=== PATIENT | female | born 1965 | race Caucasian/White ===

== ENCOUNTER 2020-07-29 11:59 | Outpatient (CLI) | payer BC, SELFPAY ==
--- NOTE | ~2020-07-29 | MM_ITS ---
EXAMINATION: MM screening kat BI w marcos HISTORY: Screening TECHNIQUE: Craniocaudal and mediolateral oblique 3-D tomosynthesis images were obtained and synthetic 2-D images were generated. CAD analysis was submitted and interpreted. COMPARISON: Comparison to multiple prior studies sequentially, with oldest reviewed study dated 09/26. BREAST PARENCHYMAL COMPOSITION: There are scattered areas of fibroglandular density. FINDINGS: There is no evidence of suspicious mass, calcification, or architectural distortion to sugg est malignancy in either breast. There has been no suspicious interval change. IMPRESSION: 1. No mammographic evidence of malignancy. 2. Recommend routine screening mammography in one year. BI-RADS Category 1: Negative Reviewed, dictated and finalized at location A.
== END 2020-07-29 12:00 | disposition home or self-care (01) ==
PROVIDERS: PCP Internal Medicine; Visit Provider Obstetrics & Gynecology
DX: Z12.31 Encounter for screening mammogram for malignant neoplasm of breast (principal)
CPT/HCPCS: 77063; 77067

== ENCOUNTER 2020-08-19 13:55 | Outpatient (CLI) | payer BC, SELFPAY ==
[2020-08-19 14:55] LABS: Basophils Percent Auto 0.5 % (0.2-1.2); Eosinophils Absolute Auto 0.2 K/mm3 (0-0.3); Eosinophils Percent Auto 2.1 % (0-4.4); Hematocrit 43.3 % (37.0-47.0); Hemoglobin 14.8 g/dL (12.0-15.0); Immature Granulocyte Absolute 0.03 K/mm3 (0.00-0.031); Immature Granulocyte Percent A 0.4 % (0-0.5); Lymphocytes Percent Auto 27.5 % (18.3-44.2); Mean Corpuscular HGB Conc 34.2 g/dl (32-36); Mean Corpuscular Hemoglobin 33.7 pg (26-34); Mean Corpuscular Volume 98.6 fl (80-100); Mean Platelet Volume 10.9 fl (7.4-10.4); Monocytes Absolute Auto 0.6 K/mm3 (0.1-0.6); Monocytes Percent Auto 7.2 % (2.6-8.5); Neutrophils Percent Auto 62.3 % (45.5-73.1); Platelet Count Result 235 k/mm3 (150-375); Red Blood Count 4.39 M/mm3 (4.2-5.4); Red Cell Distribution Width 12.1 % (11.5-14.5)
[2020-08-19 16:08] LABS: Vitamin D 25 Hydroxy 40.8 ng/mL
== END 2020-08-19 13:56 | disposition home or self-care (01) ==
LOC: ANHLAB 13:57
PROVIDERS: PCP Internal Medicine; Visit Provider Obstetrics & Gynecology
DX: Z00.00 Encounter for general adult medical examination without abnormal findings (principal)
CPT/HCPCS: 36415; 82306; 85025

== ENCOUNTER 2021-05-01 12:30 | Outpatient (CLI) | payer OTHER, SELFPAY ==
--- NOTE | ~2021-05-01 | XR_ITS ---
EXAMINATION: XR shoulder RT min 2V DATE: 05/01/2021 13:02 INDICATION: Right shoulder pain. TECHNIQUE: 4 views of right shoulder were obtained. COMPARISON: None. FINDINGS: Bone alignment is normal. No fracture. Glenohumeral joint is normal. There is mild acromioc lavicular joint osteoarthritis. There is mild scarring at right lung apex. IMPRESSION: 1. Mild acromioclavicular joint osteoarthritis. Reviewed, dictated and finalized at location A.
--- NOTE | ~2021-05-01 | XR_ITS ---
EXAMINATION: XR chest 2V 05/01/2021 13:02 INDICATION: Chest pain PROCEDURE: PA and lateral views of the chest COMPARISON: 11/01/2017 FINDINGS: The lungs are clear. The cardiomediastinal silhouette is within normal limits. There are no pleural effusions. There is no pneumothorax suspected. IMPRESSION: 1: NO ACUTE CARDIOPULMONARY DISEASE. Reviewed, dictated and finalized at location B.
[2021-05-01 12:54] LABS: Basophils Percent Auto 0.7 % (0.2-1.2); Eosinophils Absolute Auto 0.1 K/mm3 (0-0.3); Eosinophils Percent Auto 2.2 % (0-4.4); Hematocrit 46.3 % (37.0-47.0); Hemoglobin 15.2 g/dL (12.0-15.0); Immature Granulocyte Absolute 0.03 K/mm3 (0.00-0.031); Immature Granulocyte Percent A 0.5 % (0-0.5); Lymphocytes Absolute Auto 1.85 K/mm3 (0.9-3.2); Lymphocytes Percent Auto 33.6 % (18.3-44.2); Mean Corpuscular HGB Conc 32.8 g/dl (32-36); Mean Corpuscular Hemoglobin 32.8 pg (26-34); Mean Corpuscular Volume 99.8 fl (80-100); Mean Platelet Volume 10.3 fl (7.4-10.4); Monocytes Absolute Auto 0.5 K/mm3 (0.1-0.6); Monocytes Percent Auto 8.4 % (2.6-8.5); Neutrophils Percent Auto 54.6 % (45.5-73.1); Platelet Count Result 219 k/mm3 (150-375); Red Blood Count 4.64 M/mm3 (4.2-5.4); Red Cell Distribution Width 12.2 % (11.5-14.5); White Blood Count 5.5 K/mm3 (4.5-10.0)
[2021-05-01 13:14] LABS: Alanine Aminotransferase 22 U/L (4-35); Albumin Level 4.7 g/dL (3.5-5.1); Alkaline Phosphatase 59 U/L (38-126); Anion Gap 10 mmol/L (8-16); Aspartate Amino Transferase 29 U/L (14-36); Bilirubin,Total 0.6 mg/dL (0.2-1.3); Blood Urea Nitrogen 16 mg/dL (7-17); Calcium 9.7 mg/dL (8.4-10.2); Carbon Dioxide 25 mmol/L (22-30); Chloride 105 mmol/L (98-107); Cholesterol 195 mg/dL (0-200); Estimated Glomerular Filt Rate > 60; Glucose 79 mg/dL (65-105); HDL Direct 77 mg/dL; Potassium 4.6 mmol/L (3.4-5.0); Sodium 140 mmol/L (137-145); Triglycerides 66 mg/dL (<150)
[2021-05-01 13:25] LABS: LDL Cholesterol Direct 84 mg/dL
[2021-05-01 14:07] LABS: Thyroid Stimulating Hormone 0.431 uIU/mL (0.465-4.680)
== END 2021-05-01 12:31 | disposition home or self-care (01) ==
PROVIDERS: PCP Internal Medicine; Referring Provider Nurse Practitioner; Visit Provider Clinical Nurse Specialist
DX: R07.81 Pleurodynia (principal); I10 Essential (primary) hypertension; M19.011 Primary osteoarthritis, right shoulder
CPT/HCPCS: 36415; 71046; 73030; 80053; 80061; 84443; 85025

== ENCOUNTER 2022-01-30 11:08 | Outpatient (CLI) | payer OTHER, SELFPAY ==
--- NOTE | ~2022-01-30 | CT_ITS ---
EXAMINATION: CT abdomen pelvis w con EXAM DATE: 01/30/2022 11:48 INDICATION: R10.9 - Unspecified abdominal pain . TECHNIQUE: Spiral CT of the abdomen and pelvis was performed following intravenous injection of 100 m L Omnipaque 350. Axial, coronal and sagittal images of the abdomen and pelvis were reviewed. The do se-length product (DLP) for this examination was 264.66 mGy-cm. The exposure was tailored according to patient size (auto mA exposure control), and iterative reconstruction (ASIR) was used as additiona l dose reduction technique. Comparison is made to prior examination from 07/26/2019. FINDINGS: There is a right liver dome hemangioma measuring about 1.1 cm. Pancreas, spleen, adrenal gl ands are otherwise unremarkable. Gallbladder is unremarkable. No biliary obstruction. Portal and s plenic veins are patent. Kidneys enhance symmetrically. There is no hydronephrosis. The uterus is unremarkable. The bladder is unremarkable. There is no retroperitoneal or pelvic lymphadenopathy. Interval appendectomy. There is moderate sigmoid predominant colonic diverticulosis. There is no adj acent inflammatory change to suggest diverticulitis. The stomach and small bowel are unremarkable. T here is expected amount of colonic stool. No free intraperitoneal gas. The heart is normal in siz e. There are no pericardial or pleural effusions. The lung bases are unremarkable. There are no os teoblastic or osteolytic lesions identified. IMPRESSION: 1. No acute intra-abdominal findings. 2. Moderate colonic diverticulosis. 3. Small liver hemangioma. Reviewed, dictated and finalized at location A. NSED ACUPUNCTURIST
[2022-01-30 11:41] LABS: Basophils Percent Auto 0.7 % (0.2-1.2); Eosinophils Absolute Auto 0.1 K/mm3 (0-0.3); Eosinophils Percent Auto 2.1 % (0-4.4); Hematocrit 46.6 % (37.0-47.0); Hemoglobin 15.5 g/dL (12.0-15.0); Immature Granulocyte Absolute 0.02 K/mm3 (0.00-0.031); Immature Granulocyte Percent A 0.3 % (0-0.5); Lymphocytes Absolute Auto 1.91 K/mm3 (0.9-3.2); Lymphocytes Percent Auto 33.2 % (18.3-44.2); Mean Corpuscular HGB Conc 33.3 g/dl (32-36); Mean Corpuscular Hemoglobin 33.8 pg (26-34); Mean Corpuscular Volume 101.7 fl (80-100); Mean Platelet Volume 10.4 fl (7.4-10.4); Monocytes Absolute Auto 0.5 K/mm3 (0.1-0.6); Monocytes Percent Auto 8.3 % (2.6-8.5); Neutrophils Absolute Auto 3.2 K/mm3 (1.3-6.7); Neutrophils Percent Auto 55.4 % (45.5-73.1); Platelet Count Result 244 k/mm3 (150-375); Red Blood Count 4.58 M/mm3 (4.2-5.4); Red Cell Distribution Width 12.4 % (11.5-14.5); White Blood Count 5.8 K/mm3 (4.5-10.0)
[2022-01-30 11:41] LABS: Estimated Glomerular Filt Rate > 60
[2022-01-30 11:53] LABS: Alanine Aminotransferase 22 U/L (4-35); Albumin Level 4.6 g/dL (3.5-5.1); Alkaline Phosphatase 63 U/L (38-126); Amylase 85 U/L (30-110); Anion Gap 8 mmol/L (8-16); Aspartate Amino Transferase 28 U/L (14-36); Bilirubin,Total 0.5 mg/dL (0.2-1.3); Blood Urea Nitrogen 14 mg/dL (7-17); Calcium 9.3 mg/dL (8.4-10.2); Carbon Dioxide 28 mmol/L (22-30); Chloride 104 mmol/L (98-107); Estimated Glomerular Filt Rate > 60; Glucose 99 mg/dL (65-110); Lipase 96 U/L (23-300); Potassium 4.7 mmol/L (3.4-5.0); Sodium 140 mmol/L (137-145)
== END 2022-01-30 11:09 | disposition home or self-care (01) ==
PROVIDERS: PCP Internal Medicine; Visit Provider Internal Medicine
DX: R10.9 Unspecified abdominal pain (principal); K57.30 Diverticulosis of large intestine without perforation or abscess without bleeding; D18.03 Hemangioma of intra-abdominal structures
CPT/HCPCS: 36415; 74177; 80053; 82150; 83690; 85025; Q9967

== ENCOUNTER 2022-02-05 09:53 | Outpatient (CLI) | payer OTHER, SELFPAY ==
--- NOTE | ~2022-02-05 | NM_ITS ---
EXAMINATION: NM hepatobiliary wo pharm DATE: 02/05/2022 12:41 INDICATION: Unspecified abdominal pain. COMPARISON: CT abdomen and pelvis 01/30/2022 TECHNIQUE: 5 mCi Tc-99m mebrofenin (Choletec) was administered intravenously. Scintigraphic images o f the abdomen were obtained for one hour. Then, the patient drank 8 oz Ensure, and imaging was contin ued for 60 minutes. FINDINGS: There is normal clearance of radiotracer from the blood pool. There is homogeneous tracer u ptake by the liver. Activity progresses to the bowel and gallbladder. Gallbladder ejection fraction (GBEF) was 65%. Note that with this technique, normal GBEF >= 33%. IMPRESSION: 1. Normal hepatobiliary scintigraphy. Reviewed, dictated and finalized at location A.
== END 2022-02-05 09:54 | disposition home or self-care (01) ==
LOC: ANHIMG 09:54
PROVIDERS: PCP Internal Medicine; Visit Provider Internal Medicine
DX: R10.9 Unspecified abdominal pain (principal)
CPT/HCPCS: 78226; A9537

== ENCOUNTER 2022-02-15 13:14 | Outpatient (CLI) | payer OTHER, SELFPAY ==
[2022-02-15 14:10] LABS: Add Urine Microscopic? YES; Appearance Urine Clear (Clear); Bacteria Urine Trace /hpf; Bilirubin Urine Negative (Negative); Blood Urine Negative (Negative); Color Urine Yellow (Yellow); Glucose Urine UA Negative (Negative); Ketones Urine Negative (Negative); Leukocyte Esterase Ur Negative LEU/UL (Negative); Nitrate Urine Negative (Negative); Protein Urine Negative (Negative); RBC Urine 0-2 /hpf (0-2); Specific Grav Ur 1.011 (1.001-1.035); Urobilinogen Urine Negative mg/dL (<2.0); WBC Urine 0-3 /hpf
== END 2022-02-15 13:15 | disposition home or self-care (01) ==
LOC: ANHLAB 13:16
PROVIDERS: PCP Internal Medicine; Visit Provider Obstetrics & Gynecology
DX: R39.9 Unspecified symptoms and signs involving the genitourinary system (principal)
CPT/HCPCS: 81001

== ENCOUNTER 2022-04-12 11:15 | Outpatient (CLI) | payer OTHER, SELFPAY ==
--- NOTE | ~2022-04-12 | XR_ITS ---
EXAMINATION: XR tibia fibula LT 2V DATE: 04/12/2022 11:47 INDICATION: Left knee pain. TECHNIQUE: 2 views of left tibia and fibula on 3 radiographs were obtained. COMPARISON: None. FINDINGS: Bone alignment is normal. No fracture. There is mild left knee osteoarthritis. IMPRESSION: 1. Mild left knee osteoarthritis. Reviewed, dictated and finalized at location A.
--- NOTE | ~2022-04-12 | XR_ITS ---
XR knee LT min 4V 04/12/2022 11:47 INDICATION: Left knee pain PROCEDURE: 4 views left knee COMPARISON: 04/12/2022 FINDINGS: Fracture, dislocation or subluxation is not identified. No significant joint effusion. The soft tissues appear within normal limits. No foreign bodies are identified. IMPRESSION: 1: NO ACUTE BONE OR JOINT ABNORMALITY IDENTIFIED. Reviewed, dictated and finalized at location B.
== END 2022-04-12 11:16 | disposition home or self-care (01) ==
LOC: ANHIMG 11:17
PROVIDERS: PCP Internal Medicine; Visit Provider Nurse Practitioner
DX: M17.12 Unilateral primary osteoarthritis, left knee (principal)
CPT/HCPCS: 73564; 73590

== ENCOUNTER → 2022-04-26 08:49 | Outpatient (CLI) | payer OTHER, SELFPAY ==
--- NOTE | ~2022-04-26 | MR_ITS ---
EXAMINATION: MR knee LT wo con DATE: 04/26/2022 09:29 INDICATION: Right knee pain TECHNIQUE: Magnetic resonance imaging (MRI) of the right knee was performed without intravenous contr ast. Sequences included coronal PD-weighted FSE, coronal PD-weighted FS FSE, sagittal T2-weighted FS E, sagittal PD-weighted FS FSE and axial PD weighted fat saturated FSE. COMPARISON: None. FINDINGS: Medial compartment: Small longitudinal partial-thickness vertical tear extending to contact the inferior articular surfac e in the peripheral third/red zone of the posterior body of the medial meniscus. Partial-thickness ca rtilage loss with mild chondral surface regularity along the anterior weightbearing medial femoral co ndyle and medial tibial plateau. Lateral compartment: Lateral meniscus is normal. Mild partial-thickness cartilage loss with smooth chondral surface along the central to posterior weightbearing lateral femoral condyle. Patellofemoral compartment: Full-thickness chondral fissure with underlying subarticular edema extending obliquely from the infer omedial aspect of the lateral facet near the apical ridge across the apical ridge and into the centra l aspect of the medial patellar facet. Deep chondral ulceration at the superolateral aspect of the me dial patellar facet. Region of cortical irregularity and underlying region of deep chondral fissuring at the inferior aspect of the medial trochlea. Ligaments and tendons: Anterior and posterior cruciate ligaments are normal. Mild thickening of the proximal medial collater al ligament without surrounding edema consistent with mild scarring related to chronic sprain. The fi bular collateral ligament is normal. The extensor mechanism is normal. There is fluid in the soft tis sues situated between the normal-appearing iliotibial band and the lateral margin of the lateral femo ral condyle. The visualized medial and lateral hamstring tendons are normal. Fluid: Small left knee joint effusion. No loose osteochondral bodies identified. Small Farias's cyst. Osseous/other: Normal marrow signal aside from the likely degenerative patellar subarticular edema. No fracture or p athologic marrow replacing process. IMPRESSION: 1. Small partial-thickness vertical tear at the peripheral third of the posterior body of the medial meniscus. 2. Mild tricompartmental osteoarthritis with high-grade chondromalacia in the patellofemoral compartm ent. 3. Prominent soft tissue edema between the normal-appearing iliotibial band and the lateral margin of the lateral femoral condyle. This could be seen with iliotibial band friction syndrome with differen tial including sequelae of trauma either a direct soft tissue contusion or low-grade strain of the il iotibial band or lateral patellofemoral retinaculum. 4. Small left knee joint effusion and small Farias's cyst. Reviewed, dictated and finalized at location B. IMPRESSION: 1. Small partial-thickness vertical tear at the peripheral third of the posteri or body of the medial meniscus. 2. Mild tricompartmental osteoarthritis with high-grade chondromalacia in the p atellofemoral compartment. 3. Prominent soft tissue edema between the normal-appearing iliotibial band and the lateral margin of the lateral femoral condyle. This could be seen with pedrito otibial band friction syndrome with differential including sequelae of trauma e ither a direct soft tissue contusion or low-grade strain of the iliotibial band or lateral patellofemoral retinaculum. 4. Small left knee joint effusion and small Farias's cyst.
== END ==
PROVIDERS: PCP Internal Medicine; Visit Provider Nurse Practitioner
DX: M17.12 Unilateral primary osteoarthritis, left knee (principal); S83.242A Other tear of medial meniscus, current injury, left knee, initial encounter; M79.89 Other specified soft tissue disorders; M71.22 Synovial cyst of popliteal space [Baker], left knee
CPT/HCPCS: 73721

== ENCOUNTER 2022-06-14 14:54 | Outpatient (CLI) | payer OTHER, SELFPAY ==
[2022-06-14 15:52] LABS: Thyroid Stimulating Hormone 0.675 uIU/mL (0.465-4.680)
== END 2022-06-14 14:55 | disposition home or self-care (01) ==
LOC: ANHLAB 14:56
PROVIDERS: PCP Internal Medicine; Visit Provider Nurse Practitioner
DX: R03.0 Elevated blood-pressure reading, without diagnosis of hypertension (principal)
CPT/HCPCS: 36415; 84443

== ENCOUNTER 2022-06-28 09:55 | Emergency (ER) | payer OTHER, SELFPAY ==
--- NOTE | ~2022-06-28 | CT_ITS ---
EXAMINATION: CT brain wo con DATE: 06/28/2022 12:20 INDICATION: Dizziness. Hypertension. TECHNIQUE: Computed tomography (CT) of the head was performed without intravenous contrast. The mA wa s adjusted according to patient size. Iterative reconstruction technique was employed. Exam dose: 60 5.33 mGy-cm total exam DLP. COMPARISON: None FINDINGS: No intracranial mass lesion or hemorrhage or cerebrovascular accident. No midline shift or mass effect. Normal ventricular size. Normal garcia-white matter differentiation. Mild carotid siphon i nternal carotid artery calcifications. No subdural or epidural hematoma. Mild mucoperiosteal thickening in the posterior medial left sphenoid sinus. Included paranasal sinuse s and the mastoid air cells otherwise are normally developed and aerated. No fracture or bone destruction of the cranial vault. IMPRESSION: Cerebral atherosclerosis No significant abnormal intracranial finding Reviewed, dictated and finalized at Location A. Reviewed, dictated and finalized at location B.
--- NOTE | ~2022-06-28 | XR_ITS ---
EXAMINATION: XR chest 2V 06/28/2022 12:23 INDICATION: Chest pain PROCEDURE: 2 view chest COMPARISON: 05/01/2021 FINDINGS: The lungs are clear. The cardiomediastinal silhouette is within normal limits. There are no pleural effusions. There is no pneumothorax suspected. IMPRESSION: 1: NO ACUTE CARDIOPULMONARY DISEASE. Reviewed, dictated and finalized at location A.
[2022-06-28 10:07] VITALS: BP 156/105; PULSE 83; RESP 18; TEMP 36.1; O2SAT 100
[2022-06-28 10:09] LABS: Glucose Point of Care 102 mg/dl (65-105)
[2022-06-28 11:47] VITALS: BP 136/94; PULSE 79; O2SAT 99
--- NOTE | 2022-06-28 11:47 | PC.NURSE ---
Dr. Layton at bedside to assess pt.
--- NOTE | 2022-06-28 11:50 | ECG_ITS ---
Measurements Intervals [place] Rate: 74 P: 56 MI: 161 QRS: 11 QRSD: 94 T: 20 QT: 398 QTc: 443 Interpretive Statements SINUS RHYTHM BASELINE ARTIFACT NONSPECIFIC ST ABNORMALITY BORDERLINE ECG NO PREVIOUS ECG AVAILABLE FOR COMPARISON Electronically Signed On 06-28-2022 15:22:26 CDT by Riaz Landry M.D.
--- NOTE | 2022-06-28 12:18 | ED.GENADULT ---
HPI - General Adult General Chief complaint: Recheck/Abnormal Lab/Rx Stated complaint: high blood pressure Time Seen by Provider: 06/28/22 11:39 Source: RN notes reviewed History of Present Illness HPI narrative: Patient presents emergency department from home for hypertension. Patient states that this morning she was driving to pick her daughter [place] from the airport she states while she was driving she just felt mildly off . She states she was awake and alert and able to do everything she just did not feel like herself she states was associated with increased thirst and feeling of thickness in her throat. She states that she has a history of hypertension but does not regularly take her medication she had checked her blood pressure and it was elevated and she had taken her medication she states she is feeling better at this time she denies any vision changes numbness or tingling in the extremities, chest pain, shortness of breath abdominal pain nausea vomiting Related Data Home Medications Medication Instructions Recorded Confirmed fluticasone propionate 50 1 spray intranasal DAILY 11/04/20 05/31/22 mcg/actuation nasal spray,suspension (Flonase Allergy Relief) ascorbic acid (vitamin C) 1,000 mg 1 g PO DAILY 02/22/21 05/31/22 tablet triamcinolone acetonide 55 mcg 1 spray intranasal DAILY 02/22/21 05/31/22 nasal spray aerosol (Nasacort) Allergies Allergy/AdvReac Type Severity Reaction Status Date / Time shellfish derived Allergy Intermediate edema Verified 05/31/22 10:37 cat dander Allergy Unknown Verified 05/31/22 10:37 Review of Systems Review of Systems: Gen.: Denies fevers or chills Eyes: Denies eye pain or visual change ENT: Denies congestion Respiratory: Denies shortness of breath or cough CV: Denies chest pain or palpitations GI: Denies abdominal pain nausea, emesis or diarrhea Musculoskeletal: Denies back pain or muscle pain Neuro: see HPI Skin: Denies rash Except as documented, all other systems reviewed and negative PMFSH Past Medical History Medical History Acute appendicitis with localized peritonitis, without perforation or abscess Asthma Cervical radiculopathy, chronic Chronic pain of left knee Claustrophobia Environmental allergies Hypertension Iliotibial band syndrome, left leg Insomnia Urinary frequency Surgical History Surgical History History of appendectomy S/P endometrial ablation Family History Family History Other Adopted Social History Social History Smoking status: Never smoker Alcohol intake: current Substance use type: does not use Additional occupation/education comments: Realtor at [employer] Gender identity (if verbalized by the patient): Female Exam Narrative: APPEARANCE: No acute distress, nontoxic, resting in bed HEENT: Normocephalic, atraumatic, OMM, TMs clear bilaterally erythema exudate posterior pharynx, airway patent tolerating own secretions EYES: PERRL, EOMI RESPIRATORY: No respiratory distress, clear to auscultation bilaterally with no rhonchi wheezing or rales CARDIOVASCULAR: RRR s murmur ABDOMINAL: Soft, nontender, nondistended MUSCULOSKELETAL: Moves all extremities. No clubbing, cyanosis or edema. NEURO: A and O ?3, following commands, speech normal, no facial droop,muscle strength 5 out of 5 bilateral upper and lower extremities SKIN:: Warm, dry. Normal Color PSYCHIATRIC: Normal affect/mood Course Course Emergency Course: Patient is remained stable in the ER states she is feeling better Discussed with patient results of workup and diagnosis. Discussed need for follow-up with primary care, proper use of medication, and reasons to return to the emergency department. Patient understands and agrees to current t
[2022-06-28 12:26] LABS: Basophils Percent Auto 0.5 % (0.2-1.2); Eosinophils Absolute Auto 0.1 K/mm3 (0-0.3); Eosinophils Percent Auto 0.8 % (0-4.4); Hematocrit 42.9 % (37.0-47.0); Hemoglobin 14.4 g/dL (12.0-15.0); Immature Granulocyte Absolute 0.03 K/mm3 (0.00-0.031); Immature Granulocyte Percent A 0.5 % (0-0.5); Lymphocytes Absolute Auto 1.28 K/mm3 (0.9-3.2); Lymphocytes Percent Auto 19.9 % (18.3-44.2); Mean Corpuscular HGB Conc 33.6 g/dl (32-36); Mean Corpuscular Volume 101.4 fl (80-100); Mean Platelet Volume 10.4 fl (7.4-10.4); Monocytes Absolute Auto 0.5 K/mm3 (0.1-0.6); Monocytes Percent Auto 7.6 % (2.6-8.5); Neutrophils Absolute Auto 4.6 K/mm3 (1.3-6.7); Neutrophils Percent Auto 70.7 % (45.5-73.1); Platelet Count Result 208 k/mm3 (150-375); Red Blood Count 4.23 M/mm3 (4.2-5.4); Red Cell Distribution Width 12.6 % (11.5-14.5); White Blood Count 6.4 K/mm3 (4.5-10.0)
[2022-06-28 12:27] LABS: Add Urine Microscopic? YES; Appearance Urine Clear (Clear); Bilirubin Urine Negative (Negative); Blood Urine Negative (Negative); Color Urine Yellow (Yellow); Glucose Urine UA Negative (Negative); Ketones Urine Negative (Negative); Leukocyte Esterase Ur Trace LEU/UL (Negative); Nitrate Urine Negative (Negative); Protein Urine Negative (Negative); Urobilinogen Urine 0.2 mg/dL (<2.0); pH Urine 6.5 (5.0-9.0)
[2022-06-28 12:31] LABS: Bacteria Urine Trace /hpf; RBC Urine 0-2 /hpf (0-2); WBC Urine 0-3 /hpf
[2022-06-28 12:36] LABS: Alanine Aminotransferase 21 U/L (6-35); Albumin Level 4.4 g/dL (3.5-5.1); Alkaline Phosphatase 91 U/L (38-126); Anion Gap 10 mmol/L (8-16); Aspartate Amino Transferase 29 U/L (14-36); Bilirubin,Total 0.4 mg/dL (0.2-1.3); Blood Urea Nitrogen 15 mg/dL (7-17); Calcium 8.9 mg/dL (8.4-10.2); Carbon Dioxide 25 mmol/L (22-30); Chloride 100 mmol/L (98-107); Estimated CRCL calculation 78 ml/min; Estimated Glomerular Filt Rate > 60; Glucose 101 mg/dL (65-110); Lipase 136 U/L (23-300); Potassium 4.3 mmol/L (3.4-5.0); Sodium 135 mmol/L (137-145)
[2022-06-28 12:37] LABS: Prothrombin Time 13.2 Seconds (11.1-14.7)
[2022-06-28 12:38] LABS: Partial Thromboplastin Time 30.4 SECONDS (22.3-36.8)
[2022-06-28 12:47] LABS: Troponin I < 0.012 ng/mL (0.000-0.034)
[2022-06-28 14:13] VITALS: BP 114/78; PULSE 65; RESP 18; O2SAT 99
== END 2022-06-28 14:14 | disposition home or self-care (01) ==
PROVIDERS: Emergency Provider Emergency Medicine; PCP Internal Medicine
DX: I10 Essential (primary) hypertension (principal); J45.909 Unspecified asthma, uncomplicated
CPT/HCPCS: 36415; 70450; 71046; 80053; 81001; 82948; 83690; 84484; 85025; 85610; 85730; 93005; 99284

== ENCOUNTER → 2022-07-06 15:50 | Outpatient (CLI) | payer OTHER, SELFPAY ==
--- NOTE | ~2022-07-06 | US_ITS ---
EXAMINATION: US carotid duplex BI DATE: 07/06/2022 16:33 INDICATION: Dizziness and giddiness. Elevated blood pressure. TECHNIQUE: Grayscale, color Doppler, and pulsed Doppler images of the cervical carotid arteries were obtained. The degree of vessel stenosis is placed in one of the following categories: normal, <50%, 5 0-69%, >=70% but less than near-occlusion, near-occlusion, or total occlusion. Note that percent sten osis relative to normal distal artery lumen diameter is indirectly measured from velocity measurement s as described by Yeyo, et al. Radiology 2003; 229:340-346. Notes: Normal: Peak systolic velocity <125 centimeters/sec and no plaque <50%. Peak systolic velocity <125 ( EDV <40; ICA/CCA PSV ratio <2.0; used these factors only a tandem lesions or low cardiac output or co ntralateral disease) 50-69 %: PSV 125-230 (EDV 40-100; ratio 2-4) >= 70% but less than near occlusion: PSV greater than 230 (EDV > 100; ratio> 4.0) Near Occlusion: PSV that is variable; markedly narrowed lumen Occlusion: Absent flow on color/spectral Doppler and no lumen on garcia scale. COMPARISON: None. FINDINGS: RIGHT: The right common carotid artery (CCA) peak systolic velocity (PSV) is 58 cm/s. The right internal car otid artery (ICA) PSV is 57 cm/s. The right ICA end-diastolic velocity (EDV) is 28 cm/s. The right IC A/CCA PSV ratio is 1.0. The external carotid artery (ECA) PSV is 54 cm/s. There is antegrade flow in the right vertebral artery. LEFT: The left CCA PSV is 69 cm/s. The left ICA PSV is 53 cm/s. The left ICA EDV is 27 cm/s. The left ICA/C CA PSV ratio is 0.8. The ECA PSV is 63 cm/s. There is antegrade flow in the left vertebral artery. IMPRESSION: 1. Less than 50% stenosis in the right internal carotid artery by sonographic criteria. 2. Less than 50% stenosis in the left internal carotid artery by sonographic criteria. Reviewed, dictated and finalized at location A. IMPRESSION: 1. Less than 50% stenosis in the right internal carotid artery by sonographic c bea. 2. Less than 50% stenosis in the left internal carotid artery by sonographic itzel chavez.
== END ==
PROVIDERS: PCP Internal Medicine; Visit Provider Clinical Nurse Specialist
DX: R42 Dizziness and giddiness (principal); I65.23 Occlusion and stenosis of bilateral carotid arteries
CPT/HCPCS: 93880

== ENCOUNTER 2022-08-14 15:27 | Outpatient (CLI) | payer OTHER, SELFPAY ==
--- NOTE | ~2022-08-14 | DEXA_ITS ---
Bone Density Report Name: JAUN MARIE Age: 57 Sex: Female Ethnicity: White Date of : 1965 Indication: postmenopausal; screening for osteoporosis; height loss; Referring Provider: KEYON DURANT Study: Bone densitometry was performed. Exam Date: August 14, 2022 Accession number: [id number] Bone Density: Region BMD T-score Z-score Classification AP Spine (L1-L4) 1.105 0.5 1.8 Normal Femoral Neck (Left) 0.672 -1.6 -0.4 Osteopenia Total Hip (Left) 0.915 -0.2 0.6 Normal Femoral Neck (Right) 0.676 -1.6 -0.4 Osteopenia Total Hip (Right) 0.945 0.0 0.8 Normal Total Hip Mean 0.930 -0.1 0.7 Normal World Health Organization criteria for BMD impression classify patients as: Normal (T-score at or above -1.0), Osteopenia (T-score between -1.0 and -2.5), or Osteoporosis (T-score at or below -2.5). 10-year Fracture Risk(1): Major Osteoporotic Fracture 7.0% Hip Fracture 0.6% Reported Risk Factors: [place] (), Neck BMD=0.676, BMI=22.7 (1) FRAX(R) Version 3.08. Fracture probability calculated for an untreated patient. Fracture probability may be lower if the patient has received treatment. Clinical Information Provided by Patient: Has used the following medications: Vitamin D, Calcium Patient maximum height was 69 Menopause Age: 44 Does not regularly consume dairy products Drinks caffeinated beverages Onset of menses at age 14 Number of children 3 Impression: The patient has low bone mass, based on the Left Femoral Neck T-score. The patient has an estimated ten-year risk of hip fracture of 0.6% and an estimated ten-year risk of major fracture of 7%, based on the WHO FRAX algorithm. Discussion: BONE DENSITY IS LOW AT ONE OR MORE SKELETAL SITES. This patient's lowest T-score is low at one or more skeletal sites. It meets the World Health Organization's (WHO) criteria for ?low bone mass? (T-score between -1.0 and -2.5). The patient's 10-year risk of fracture as calculated by FRAX is less than the threshold where pharmacological therapy is recommended by the National Osteoporosis Foundation (NOF). However, all treatment decisions require clinical judgment and consideration of individual patient factors, including patient preferences, comorbidities, previous drug use, risk factors not captured in the FRAX model (e.g., frailty, falls, vitamin D deficiency, increased bone turnover, interval significant decline in bone density) and possible under or overestimation of fracture risk by FRAX. The patient should follow a healthful lifestyle (good nutrition with adequate calcium and vitamin D, and appropriate weight-bearing exercise). Follow-Up: Consider repeating this study in 2 to 3 years to reassess this patient's status, or sooner if there is some new clinical indication. Reported by:
== END 2022-08-14 15:28 ==
LOC: MICIMG 15:29
PROVIDERS: PCP Internal Medicine; Visit Provider Obstetrics & Gynecology
DX: Z78.0 Asymptomatic menopausal state (principal); M85.852 Other specified disorders of bone density and structure, left thigh; M85.851 Other specified disorders of bone density and structure, right thigh
CPT/HCPCS: 77080

== ENCOUNTER → 2023-10-29 11:29 | Outpatient (CLI) | payer OTHER, SELFPAY ==
--- NOTE | ~2023-10-29 | XR_ITS ---
Cervical Spine: AP, lateral, open-mouth views Clinical History: Radiculopathy Findings: The normal lordotic curve is maintained. No fracture identified. There is minimal grade 1 r etrolisthesis of C3 over C4. There is advanced degenerative disc disease from C3 through C7. There is mild to moderate facet arthropathy throughout the cervical spine. Pre-vertebral soft tissues are unr emarkable. Impression: Moderate to advanced degenerative spondylosis, as above. Minimal grade 1 retrolisthesis of C3 over C4. Reviewed, dictated and finalized at location M. ISSIONING AGENT Impression: Moderate to advanced degenerative spondylosis, as above. Minimal grade 1 retrolisthesis of C3 over C4.
--- NOTE | ~2023-10-29 | XR_ITS ---
Right Shoulder Technique: AP and scapular Y views were obtained. Clinical History: pain Findings: No fracture or dislocation is seen. Osseous alignment is anatomic. The glenohumeral and acr omioclavicular joint spaces are preserved. Soft tissues are unremarkable. Impression: Unremarkable right shoulder radiographs. Reviewed, dictated and finalized at [facility]. PASSENGER FIRER Impression: Unremarkable right shoulder radiographs.
== END ==
PROVIDERS: PCP Clinical Nurse Specialist; Visit Provider Clinical Nurse Specialist
DX: M43.02 Spondylolysis, cervical region (principal)
CPT/HCPCS: 72040; 73030

== ENCOUNTER 2024-01-06 12:41 | Outpatient (CLI) | payer OTHER, SELFPAY ==
--- NOTE | ~2024-01-06 | MR_ITS ---
MRI of the cervical spine Clinical History: Radiculopathy Technique: Axial T2-weighted and gradient images, and sagittal T1-weighted, T2-weighted, and STIR flex ges were acquired. Findings: No fracture or subluxation seen in the cervical spine. Vertebral bodies maintain normal ali gnment. No suspicious bone marrow signal abnormality seen. At C2-C3, there is no disc bulge or herniation. No spinal canal stenosis, cord compression, or neural foraminal narrowing evident. At C3-C4, there is disc osteophyte complex with degenerative disc narrowing. There is mild canal sten osis without elisabeth cord compression. There is bilateral neural foraminal narrowing, right worse than left. At C4-C5, there is mild disc osteophyte complex, especially at the left paracentral region, without f rank canal stenosis or cord compression. There is probable minimal left neural foraminal narrowing. R ight neural foramen preserved. At C5-C6, there is mild disc osteophyte complex. No canal stenosis or cord compression. There is bila teral neural foraminal narrowing, right worse than left. At C6-C7, there is minimal disc osteophyte complex. No canal stenosis or cord compression. There is b ilateral neural foraminal narrowing. No abnormal signal seen in the spinal cord. Paravertebral soft tissues are unremarkable. Impression: Mild to [id number] degenerative spondylosis, as detailed above. Reviewed, dictated and finalized at [facility]. OLOGY ASSISTANT Impression: Mild to [id number] degenerative spondylosis, as detailed above.
== END 2024-01-06 12:42 ==
LOC: GOSHIMG 12:42
PROVIDERS: PCP Internal Medicine; Visit Provider Clinical Nurse Specialist
DX: M43.02 Spondylolysis, cervical region (principal)
CPT/HCPCS: 72141

== ENCOUNTER 2024-02-20 15:42 | Outpatient (CLI) | payer OTHER, SELFPAY ==
--- NOTE | ~2024-02-20 | MM_ITS ---
EXAMINATION: MM screening kat BI w marcos HISTORY: Screening mammogram TECHNIQUE: Craniocaudal and mediolateral oblique 3-D tomosynthesis images were obtained and synthetic 2-D images were generated. CAD analysis was submitted and interpreted. COMPARISON: 07/2020 bilateral screening mammogram BREAST PARENCHYMAL COMPOSITION: There are scattered areas of fibroglandular density. FINDINGS: There is no evidence of suspicious mass, calcification, or architectural distortion to sugg est malignancy in either breast. There has been no suspicious interval change. IMPRESSION: 1. No mammographic evidence of malignancy. 2. Recommend routine screening mammography in one year. BI-RADS Category 1: Negative Reviewed, dictated and finalized at location A.
== END 2024-02-20 15:43 | disposition home or self-care (01) ==
LOC: ANHIMG 15:43
PROVIDERS: PCP Clinical Nurse Specialist; Visit Provider Obstetrics & Gynecology
DX: Z12.31 Encounter for screening mammogram for malignant neoplasm of breast (principal)
CPT/HCPCS: 77063; 77067

== ENCOUNTER 2024-10-27 11:37 | Emergency (ER) | payer OTHER, SELFPAY ==
--- NOTE | 2024-10-27 11:49 | ED.URI ---
HPI - URI/Sore Throat General Chief Complaint: Upper Respiratory Infection Stated Complaint: Sinus Infection Symptoms Time Seen by Provider: 10/27/24 11:50 Source: patient Mode of arrival: ambulatory Limitations: no limitations History of Present Illness HPI Narrative: Brooklynn is a 59-year-old female patient presenting to the clinic today with complaints of possible sinus infection. She reports she has had symptoms for 2-3 weeks of nasal congestion/allergy. Over the last 4 days she states that the drainage when greenish got lost sinus pressure in her maxillary area. She did also reports some nasal drainage going in the back of her throat. Denies any fevers or chills. MD elicited complaint: rhinorrhea, nasal congestion and sinus pain Related Data Home Medications Medication Instructions Recorded Confirmed ascorbic acid (vitamin C) 1,000 mg 1 g PO DAILY 02/22/21 12/25/23 tablet azelastine 0.05 % eye drops 1 drp EACH EYE BID 10/29/23 12/25/23 epinastine 0.05 % eye drops 1 drp EACH EYE BID 10/29/23 12/25/23 triamcinolone acetonide 55 mcg 1 spray intranasal DAILY PRN 10/29/23 12/25/23 nasal spray aerosol (Nasacort) Allergies Allergy/AdvReac Type Severity Reaction Status Date / Time shellfish derived Allergy Intermediate edema Verified 10/27/24 11:52 cat dander Allergy Unknown Verified 10/27/24 11:52 Review of Systems Review of Systems: Pertinent positives per HPI. Patient denies any fever, chills, rash, headache, visual changes, dizziness, cough, shortness of breath, chest pain, palpitations, nausea, vomiting, diarrhea, constipation, abdominal pain, or any urinary issues. [facility] Past Medical History Medical History Abdominal pain Acute appendicitis with localized peritonitis, without perforation or abscess Acute bronchiolitis Asthma Asthma attack Cervical radiculopathy, chronic Chronic pain of left knee Chronic rhinitis Chronic sinusitis Claustrophobia Dizziness Ear fullness Elevated blood pressure reading Environmental allergies Frequent UTI Gait disturbance Headache Height loss Hospital discharge follow-up Hypertension Iliotibial band syndrome, left leg Insomnia Left leg pain Medial meniscus tear Nasal vestibulitis Otitis media Rib pain on left side Urinary frequency Vaginal symptom Surgical History Surgical History History of appendectomy S/P endometrial ablation Family History Family History Other Adopted Social History Social History Social History: Caffeine-1 cup daily Smoking status: Former smoker Alcohol intake: former Alcohol use details: 6 weekly Substance use type: does not use Living arrangements: with family Occupation/Education: occupation 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 There is no relevant family history pertinent to the patient complaint. Exam Narrative: General: Well-developed, well nourished, in no apparent distress Head: Normocephalic, atraumatic Eyes: Pupils equally round and reactive to light bilaterally, EOM intact, sclera and conjunctive clear, no discharge, lids normal Ears: TMs intact and clear, ear canals clear, no drainage, grossly hearing normal. Nose: Nares patent, green nasal discharge, severe inflammation with white straie, maxillary sinus tenderness. Mouth: Oral pharynx without lesions or masses, good dentition, MMM. Postnasal drip Neck: Supple, trachea midline, no enlargement of anterior or posterior cervical nodes, no thyroid masses or goiter palpable. Cardio: Regular rate and rhythm, s1 and s2 normal, no murmur appreciated. Resp: Clear to auscultation bilaterally, no rhonchi, rales, wheezing or rubs Course Course Emergency Course: Portions of this record may have been created with voice recognition software. Level of Care: Express Care Visit Vital Signs Vital signs: Vital signs reviewed MDM - URI/Sore Throat MDM Narrative Medical decision making narrative: At the time of visit patient is resting comfortably on the exam table. Patient appears to be nontoxic. Plan: I suspect patient has acute bacterial rhinosinusitis. Prescription for prednisone and Augmentin was sent to pharmacy. Supportive measures were discussed with the patient and they voiced understanding discharge instructions and agrees to treatment plan. Return precautions reviewed Differential Diagnosis Differential diagnosis: Likely upper respiratory infection, otitis media, sinusitis, viral infection, bronchitis, influenza, pharyngitis and other (COVID) Discharge Plan Discharge Clinical Impression: Acute bacterial rhinosinusitis Patient Disposition: Home, Self-Care Condition: Stable Instructions: Antibiotic Form, Rhinosinusitis (ED) Additional Instructions: Take prescription medications only as prescribed-Augmentin and prednisone Increase fluids and stay well hydrated Tylenol/motrin for pain/fever Flonase and OTC antihistamines as directed Vicks vapor rub to open sinuses Sinus rinses for congestion Cepacol spray, cough drops, throat lozenges, warm tea with honey/lemon, gargle salt water to soothe throat BRAT diet for diarrhea Clear liquids x 24 hours then advance as tolerated for nausea/vomiting Go to the ED if you develop a worsening in your condition- high fever not controlled by Tylenol or Motrin, dehydration, weakness, lethargy, shortness of breath, or chest pain. Follow up with your PCP in 3-5 days if symptoms persist. Prescriptions: New prednisone 20 mg tablet 40 mg PO DAILY 5 Days Qty: 10 0RF amoxicillin-pot clavulanate 875-125 mg tablet 1 tablet PO Q12H 10 Days Qty: 20 0RF No Action ascorbic acid (vitamin C) 1,000 mg tablet 1 g PO DAILY triamcinolone acetonide [Nasacort] 55 mcg aerosol,spray 1 spray intranasal DAILY PRN Rx Instructions: administer into each nostril epinastine 0.05 % drops 1 drp EACH EYE BID azelastine 0.05 % drops 1 drp EACH EYE BID alprazolam [Xanax] 0.25 mg tablet 0.25 mg PO ONCE Qty: 1 0RF Rx Instructions: To be taken 30 minutes prior to MRI. varenicline [Chantix Continuing Month Box] 1 mg tablet 1 mg PO BID Qty: 56 0RF Rx Instructions: NEEDS APPOINTMENT FOR FURTHER REFILLS Follow-up/Referrals: Obie Vick DO [Primary Care Provider] - Time of Disposition: 11:53 Quality NIHSS Nursing Documentation ED NIHSS nursing documentation: reviewed/agree
[2024-10-27 11:56] VITALS: BP 162/105; PULSE 81; RESP 16; TEMP 36.2; O2SAT 100
== END 2024-10-27 11:55 | disposition home or self-care (01) ==
PROVIDERS: Emergency Provider Nurse Practitioner Family; PCP Internal Medicine
DX: J01.90 Acute sinusitis, unspecified (principal); Z87.891 Personal history of nicotine dependence; J45.909 Unspecified asthma, uncomplicated; I10 Essential (primary) hypertension
CPT/HCPCS: 99213; G0463

== ENCOUNTER 2024-11-23 12:16 | Emergency (ER) | payer OTHER, SELFPAY ==
[2024-11-23 12:40] VITALS: BP 133/105; PULSE 67; RESP 16; TEMP 36.8; O2SAT 100
--- NOTE | 2024-11-23 13:36 | ED_ITS ---
HPI - URI/Sore Throat General Chief Complaint: Upper Respiratory Infection Stated Complaint: Sore Throat Time Seen by Provider: 11/23/24 13:23 Source: patient and RN notes reviewed Mode of arrival: ambulatory Limitations: no limitations History of Present Illness HPI Narrative: Patient presents today with a 3 day history of sore throat, postnasal drip, headache, sinus pressure, and subjective fever. She has been using nose spray, Mucinex, ibuprofen, vitamin-C, Benadryl without much relief. No known sick contacts, patient works in real estate. No shortness of breath or difficulty swallowing. Related Data Home Medications ?Medication ?Instructions ?Recorded ?Confirmed ?Last Taken ?Type ascorbic acid (vitamin C) 1,000 mg 1 g PO DAILY 02/22/21 11/23/24 Unknown History tablet azelastine 0.05 % eye drops 1 drp EACH EYE BID 10/29/23 11/23/24 Unknown History epinastine 0.05 % eye drops 1 drp EACH EYE BID 10/29/23 11/23/24 Unknown History triamcinolone acetonide 55 mcg 1 spray intranasal DAILY 10/29/23 11/23/24 11/23/24 History nasal spray aerosol (Nasacort) Allergies Allergy/AdvReac Type Severity Reaction Status Date / Time shellfish derived Allergy Intermediate edema Verified 11/23/24 12:34 cat dander Allergy Unknown Verified 11/23/24 12:34 Review of Systems Review of Systems: CONSTITUTIONAL: Denies body aches, chills, or sweats.+ subjective fever EYES: Denies visual changes, redness, or discharge. ENT: Denies rhinorrhea, or otalgia.+ nasal congestion, sore throat postnasal drip CARDIOVASCULAR: Denies chest pain, palpitations, or edema. RESPIRATORY: Denies cough or dyspnea. GASTROINTESTINAL: Denies abdominal pain, nausea, vomiting, or diarrhea. GENITOURINARY: Denies dysuria or hematuria. SKIN: Denies rash, itching, or wounds. MUSCULOSKELETAL: Denies back pain, joint pain, or myalgia. NEUROLOGIC: Denies numbness, tingling, or weakness.+ headache PSYCH: Denies depression or anxiety. PMFSH Past Medical History Medical History Headache Hospital discharge follow-up Gait disturbance Dizziness Elevated blood pressure reading Iliotibial band syndrome, left leg Claustrophobia Urinary frequency Chronic pain of left knee Cervical radiculopathy, chronic Acute appendicitis with localized peritonitis, without perforation or abscess Medial meniscus tear Left leg pain Vaginal symptom Abdominal pain Height loss Rib pain on left side Otitis media Chronic sinusitis Chronic rhinitis Frequent UTI Ear fullness Nasal vestibulitis Acute bronchiolitis Asthma attack Environmental allergies Insomnia Hypertension Asthma Surgical History Surgical History S/P endometrial ablation History of appendectomy Family History Family History Other Adopted Social History Social History Social History: Caffeine-1 cup daily Smoking status: Former smoker Alcohol intake: former Alcohol use details: 6 weekly Substance use type: does not use Living arrangements: with family Occupation/Education: occupation 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 Please see nursing chart for further information. There is no relevant family history pertinent to the presenting complaint Exam Narrative: GENERAL: Mildly ill-appearing, well-nourished, and in no acute distress. HEAD: Normocephalic, atraumatic. EYES: EOMI. No redness or drainage. Conjunctivae normal. ENT: Mucous membranes pink and moist. Nares congested. No rhinorrhea. TMs normal bilaterally. Throat normal. Uvula midline. NECK: Normal AROM. Supple. No lymphadenopathy. CHEST: No respiratory distress. Clear to auscultation. HEART: Regular rate and rhythm. No murmur appreciated. EXTREMITIES: Normal range of motion. No edema. SKIN: Warm, dry, no rash. Capillary refill normal. Normal skin turgor. NEURO: No focal deficits. Alert and oriented x3. Gait steady. PSYCH: Normal affect. No signs of depression or anxiety. Course Course Level of Care: Express Care Visit Vital Signs Vital signs: Vital Signs Temperature 98.2 F 12/30/24 12:40 Pulse Rate 67 11/23/24 12:40 Respiratory Rate 16 11/23/24 12:40 Blood Pressure 133/105 H 11/23/24 12:40 Pulse Oximetry 100 11/23/24 12:40 Oxygen Delivery Room Air 11/23/24 12:40 Temperature 98.2 F 11/23/24 12:40 Pulse Rate 67 11/23/24 12:40 Respiratory Rate 16 11/23/24 12:40 Blood Pressure 133/105 H 11/23/24 12:40 Pulse Oximetry 100 11/23/24 12:40 Oxygen Delivery Room Air 11/23/24 13:00 Reviewed MDM - URI/Sore Throat MDM Narrative Medical decision making narrative: Patient declined testing for influenza or COVID-19. Differential Diagnosis Differential diagnosis: Likely upper respiratory infection, viral infection, in fluenza, pharyngitis and other (Strep throat, COVID) Lab Data Attestation: I reviewed the patient's lab results. Critical Care Time Critical Care Time Critical Care Time: No Discharge Plan Discharge Clinical Impression: Upper respiratory infection Qualifiers: URI type: unspecified URI Qualified Code(s): J06.9 - Acute upper respiratory infection, unspecified Patient Disposition: Home, Self-Care Condition: Stable Instructions: Upper Respiratory Infection (DC) Additional Instructions: Your rapid strep swab was negative today at [facility]. You will be notified in a few days if the culture comes back positive for strep, and appropriate antibiotics will be called in for you at that time. Your symptoms are likely due to a viral illness, which is not treated with antibiotics. Viral symptoms can be present for up to 7-10 days. Take Tylenol or ibuprofen for fever or pain. Continue Mucinex to help break up any chest congestion. Rest and stay hydrated. Follow up with your PCP in 7 days if symptoms are not improving. Go to the ER immediately if you have any difficulty breathing or swallowing. Your blood pressure was elevated above 120/80 today at Urgent Care. This puts you above the threshold for follow up. Please schedule a followup visit with your personal physician as soon as possible, for further evaluation and treatment. Even blood pressure exceeding 120/80 may indicate pre-hypertension. Patient Language: Maori Prescriptions: No Action ascorbic acid (vitamin C) 1,000 mg tablet 1 g PO DAILY triamcinolone acetonide [Nasacort] 55 mcg aerosol,spray 1 spray intranasal DAILY Rx Instructions: administer into each nostril epinastine 0.05 % drops 1 drp EACH EYE BID azelastine 0.05 % drops 1 drp EACH EYE BID varenicline [Chantix Continuing Month Box] 1 mg tablet 1 mg PO BID Qty: 56 0RF Rx Instructions: NEEDS APPOINTMENT FOR FURTHER REFILLS Follow-up/Referrals: Obie Vick DO [Primary Care Provider] - Time of Disposition: 13:48
[2024-11-23 13:56] LABS: EDSTREPNEGPOS1 Negative (Negative)
== END 2024-11-23 13:54 | disposition home or self-care (01) ==
PROVIDERS: Emergency Provider Nurse Practitioner; PCP Internal Medicine
DX: J06.9 Acute upper respiratory infection, unspecified (principal); I10 Essential (primary) hypertension; J45.909 Unspecified asthma, uncomplicated; Z87.891 Personal history of nicotine dependence
CPT/HCPCS: 87081; 87880; 99213; G0463

== ENCOUNTER 2024-11-27 14:31 | Emergency (ER) | payer OTHER, SELFPAY ==
[2024-11-27 15:06] VITALS: BP 133/99; PULSE 89; RESP 16; TEMP 36.4; O2SAT 100
--- NOTE | 2024-11-27 15:44 | ED_ITS ---
HPI - URI/Sore Throat General Chief Complaint: Upper Respiratory Infection Stated Complaint: congestion Time Seen by Provider: 11/27/24 15:44 Source: patient Mode of arrival: ambulatory Limitations: no limitations History of Present Illness HPI Narrative: 59-year-old female presents with complaint of nasal congestion, sinus pressure, postnasal drainage for 7-8 days. Patient reports she was seen here 4 days ago a nd was told symptoms were viral. Reports she now has thick green nasal drainage. Worsening of sinus pressure. Concern for bacterial sinusitis. Patient requesting antibiotics. All systems reviewed and negative except as noted above. Related Data Home Medications ?Medication ?Instructions ?Recorded ?Confirmed ?Last Taken ?Type ascorbic acid (vitamin C) 1,000 mg 1 g PO DAILY 02/22/21 11/27/24 Unknown History tablet azelastine 0.05 % eye drops 1 drp EACH EYE BID 10/29/23 11/27/24 Unknown History epinastine 0.05 % eye drops 1 drp EACH EYE BID 10/29/23 11/27/24 Unknown History triamcinolone acetonide 55 mcg 1 spray intranasal DAILY 10/29/23 11/27/24 11/23/24 History nasal spray aerosol (Nasacort) Allergies Allergy/AdvReac Type Severity Reaction Status Date / Time shellfish derived Allergy Intermediate edema Verified 11/27/24 15:04 cat dander Allergy Unknown Verified 11/27/24 15:04 Review of Systems Review of Systems: CONSTITUTIONAL: Denies fever, chills, or sweats. Reports fatigue. EYES: Denies visual changes, redness, or discharge. ENT: Reports rhinorrhea, congestion, green nasal drainage, sinus pressure. Denies sore throat, or otalgia. CARDIOVASCULAR: Denies chest pain, palpitations, or edema. RESPIRATORY: Denies cough or dyspnea. GASTROINTESTINAL: Denies abdominal pain, nausea, vomiting, or diarrhea. GENITOURINARY: Denies dysuria or hematuria. SKIN: Denies rash or itching. MUSCULOSKELETAL: Denies back pain, joint pain. Reports myalgia. NEUROLOGIC: Denies headache, numbness, or weakness. PSYCHIATRIC: Denies anxiety or depression. All other systems reviewed are negative, except as documented in HPI. [facility] Past Medical History Medical History Headache Hospital discharge follow-up Gait disturbance Dizziness Elevated blood pressure reading Iliotibial band syndrome, left leg Claustrophobia Urinary frequency Chronic pain of left knee Cervical radiculopathy, chronic Acute appendicitis with localized peritonitis, without perforation or abscess Medial meniscus tear Left leg pain Vaginal symptom Abdominal pain Height loss Rib pain on left side Otitis media Chronic sinusitis Chronic rhinitis Frequent UTI Ear fullness Nasal vestibulitis Acute bronchiolitis Asthma attack Environmental allergies Insomnia Hypertension Asthma Surgical History Surgical History S/P endometrial ablation History of appendectomy Family History Family History Other Adopted Social History Social History Social History: Caffeine-1 cup daily Smoking status: Former smoker Alcohol intake: former Alcohol use details: 6 weekly Substance use type: does not use Living arrangements: with family Occupation/Education: occupation 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 There is no relevant family history pertinent to the presenting complaint. Exam Narrative: GENERAL: This is a well-nourished, well-developed patient, in no apparent distress. HEAD: normocephalic, atraumatic. EYES: PERRL. Sclera clear/white. Vision is grossly intact. EARS: External ears normal, auditory canals clear and without drainage, TMs normal without perforation. Hearing grossly intact. NOSE: External nose normal with erythema and swelling to bilateral nares, purulent nasal drainage. Sign frontal sinus tenderness on palpation. THROAT: Mucous membranes moist, erythema postnasal drainage NECK: Neck supple, non-tender without lymphadenopathy, masses or thyromegaly. CARDIOVASCULAR: Regular rate and rhythm without murmurs, gallops, or rubs. RESPIRATORY: Clear to auscultation. Breath sounds equal bilaterally. No wheezes, rales, or rhonchi. SKIN: warm, Dry, intact with no suspicious lesions or rash, good texture and turgor. NEURO: awake, alert, and oriented to person, place and time. There were no obvious focal neurologic abnormalities. EXTREMITIES: No joint tenderness, effusion, or edema noted. Course Course Level of Care: Express Care Visit Vital Signs Vital signs: Vital Signs Temperature 36.4 C 11/27/24 15:06 Pulse Rate 89 11/27/24 15:06 Respiratory Rate 16 11/27/24 15:06 Blood Pressure 133/99 H 11/27/24 15:06 Pulse Oximetry 100 11/27/24 15:06 Temperature 36.4 C 11/27/24 15:06 Pulse Rate 89 11/27/24 15:06 Respiratory Rate 16 11/27/24 15:06 Blood Pressure 133/99 H 11/27/24 15:06 Pulse Oximetry 100 11/27/24 15:06 Reviewed MDM - URI/Sore Throat MDM Narrative Medical decision making narrative: Will treat patient for bacterial sinusitis due to duration of symptoms and exam findings. Patient is well-appearing, nontoxic. Patient is aware of diagnosis, understands and agrees to treatment plan. Anticipatory guidance given. Patient agrees to follow-up as directed and is aware of reasons to seek care at the emergency department. Portions of this record may have been created with voice recognition software Differential Diagnosis Differential diagnosis: Likely upper respiratory infection, sinusitis, viral infection and influenza Discharge Plan Discharge Clinical Impression: Acute bacterial sinusitis Patient Disposition: Home, Self-Care Condition: Stable Instructions: Antibiotic Form, Sinusitis (ED) Additional Instructions: Take antibiotic as prescribed until gone. Taking [id number] antihistamine daily such as Claritin or Zyrtec. Use an [id number]-[id number] nasal spray daily such as Flonase or Nasacort. Drink at least 64 oz of water a day. Place cool mist humidifier in bedroom where you sleep. Follow-up your primary care physician if symptoms are not improving. Patient Language: Thai Prescriptions: New doxycycline hyclate 100 mg capsule 100 mg PO BID 7 Days Qty: 14 0RF No Action ascorbic acid (vitamin C) 1,000 mg tablet 1 g PO DAILY triamcinolone acetonide [Nasacort] 55 mcg aerosol,spray 1 spray intranasal DAILY Rx Instructions: administer into each nostril epinastine 0.05 % drops 1 drp EACH EYE BID azelastine 0.05 % drops 1 drp EACH EYE BID varenicline [Chantix Continuing Month Box] 1 mg tablet 1 mg PO BID Qty: 56 0RF Rx Instructions: NEEDS APPOINTMENT FOR FURTHER REFILLS Follow-up/Referrals: Obie Vick DO [Primary Care Provider] - Time of Disposition: 15:50
== END 2024-11-27 15:55 | disposition home or self-care (01) ==
PROVIDERS: Emergency Provider Nurse Practitioner Family; PCP Internal Medicine
DX: J01.90 Acute sinusitis, unspecified (principal); B96.89 Other specified bacterial agents as the cause of diseases classified elsewhere; J45.909 Unspecified asthma, uncomplicated; I10 Essential (primary) hypertension; Z87.891 Personal history of nicotine dependence
CPT/HCPCS: 99213; G0463

== ENCOUNTER 2025-02-27 09:44 | Outpatient (CLI) | payer BC, SELFPAY ==
--- NOTE | ~2025-02-27 | DEXA_ITS ---
Bone Density Report Name: JAUN MARIE Age: 59 Sex: Female Ethnicity: White Date of : 1965 Indication: postmenopausal; screening for osteoporosis; height loss; Referring Provider: KEYON DURANT Study: Bone densitometry was performed. Exam Date: February 27, 2025 Accession number: [id number] Bone Density: Region BMD T-score Z-score Classification AP Spine(L1-L4) 1.064 0.2 1.6 Normal Femoral Neck (Left) 0.651 -1.8 -0.5 Osteopenia Total Hip (Left) 0.941 0.0 0.9 Normal Femoral Neck (Right) 0.657 -1.7 -0.5 Osteopenia Total Hip (Right) 0.952 0.1 1.0 Normal Total Hip Mean 0.946 0.1 1.0 Normal World Health Organization criteria for BMD impression classify patients as: Normal (T-score at or above -1.0), Osteopenia (T-score between -1.0 and -2.5), or Osteoporosis (T-score at or below -2.5). 10-year Fracture Risk(1): Major Osteoporotic Fracture 7.6% Hip Fracture 0.8% Reported Risk Factors: [place] (), Neck BMD=0.651, BMI=20.2 (1) FRAX(R) Version 3.08. Fracture probability calculated for an untreated patient. Fracture probability may be lower if the patient has received treatment. Previous Exams: Region Exam Age BMD T-score BMD Change BMD Change Date g/cm2 vs Baseline vs Previous Total Hip(Left) 02/27/2025 59 0.941 0.0 0.000 (0.0%)# 0.000 (0.0%)# 04/06/2019 54 0.941 0.0 Total Hip(Right) 02/27/2025 59 0.952 0.1 -0.027 (-2.8%) -0.027 (-2.8%) 04/06/2019 54 0.980 0.3 *Denotes significance at 95% confidence level, LSC for Total Hip = 0.027 g/cm2 # Denotes dissimilar scan types or analysis methods Clinical Information Provided by Patient: Has used the following medications: Vitamin D, Calcium Patient maximum height was 70 Menopause Age: 48 Does not regularly consume dairy products Drinks caffeinated beverages Onset of menses at age 15 Number of children 2 Missed period for more than 6 months in a row Impression: The patient has low bone mass, based on the Left Femoral Neck T-score. The patient has an estimated ten-year risk of hip fracture of 0.8% and an estimated ten-year risk of major fracture of 7.6%, based on the WHO FRAX algorithm. No significant bone loss was observed. Discussion: BONE DENSITY IS LOW AT ONE OR MORE SKELETAL SITES. This patient's lowest T-score is low at one or more skeletal sites. It meets the World Health Organization's (WHO) criteria for ?low bone mass? (T-score between -1.0 and -2.5). The patient's 10-year risk of fracture as calculated by FRAX is less than the threshold where pharmacological therapy is recommended by the National Osteoporosis Foundation (NOF). However, all treatment decisions require clinical judgment and consideration of individual patient factors, including patient preferences, comorbidities, previous drug use, risk factors not captured in the FRAX model (e.g., frailty, falls, vitamin D deficiency, increased bone turnover, interval significant decline in bone density) and possible under or overestimation of fracture risk by FRAX. The patient should follow a healthful lifestyle (good nutrition with adequate calcium and vitamin D, and appropriate weight-bearing exercise). Follow-Up: Consider repeating this study in 2 to 3 years to reassess this patient's status, or sooner if there is some new clinical indication. Reported by: MAYI on 02/27/2025 10:27:00 AM. Reviewed, dictated and finalized at location A. [facility]
--- NOTE | ~2025-02-27 | MM_ITS ---
EXAMINATION: MM screening kat BI w marcos HISTORY: Screening TECHNIQUE: Craniocaudal and mediolateral oblique 3-D tomosynthesis images were obtained and synthetic 2-D images were generated. CAD analysis was submitted and interpreted. COMPARISON: Comparison to multiple prior studies sequentially, with oldest reviewed study dated 08/08. BREAST PARENCHYMAL COMPOSITION: Not dense: There are scattered areas of fibroglandular density. FINDINGS: There is no evidence of suspicious mass, calcification, or architectural distortion to sugg est malignancy in either breast. There has been no suspicious interval change. IMPRESSION: 1. No mammographic evidence of malignancy. 2. Recommend routine screening mammography in one year. BI-RADS Category 1: Negative Reviewed, dictated and finalized at location A.
--- OUTSIDE RECORDS SUMMARY | 2025-02-27 09:47 | XMS_ITS | Encounter Summary ---
Author Organization [facility] Address [address] [place] [address] Care Team Providers Care Seafood Specialist Name Role Phone Unavailable Primary Care Provider Unavailabl e Encounter Details Date Type Department Care Team (Late st Contact Info) Description 06/30/2018 Lab Requisition [facility] Care DermPath Lab [address] [place] [id number] Merna Richey MD [address] [facility] [place] [address] [place] [address] Social History Tobacco Use Types Packs/Day Years Used Date Smoking Tobacco: Never Assessed Sex and Gender Information Value Date Recorded Sex Assigned at Not on file Gender Identity Not on file Sexual Orientation Not on file documented as of this encounter Plan of Treatment Not on file documented as of this encounter Procedures Procedure Name Priority Date/Time Associated Diagnosis Comments DERMATOPATH TECHNICAL REPORT Routine 06/26/2018 12:00 AM CDT documented in this encounter Results * DERMATOPATH TECHNICAL REPORT (06/26/2018 12:00 AM CDT) Case Report Dermatopathology Report Case: [id number] Authorizing Provider: Merna Richey MD Collected: 06/26/2018 12:00 AM Pathologist: Katja Hess MD Received: 06/30/2018 07:12 AM Specimen: Skin, sup to left knee 8 11:48 AM CDT DERMATOPATHOLOGY LABORATORY Clinical History R/O dermatofibroma, irritated. 8 11:48 AM CDT DERMATOPATHOLOGY LABORATORY Gross Description Specimen A: Received is one formalin filled container labeled with the patient's name and designated sup to left knee. The specimen consists of a shave measuring [id number]. Jar 0. [facility] Dermatopathology Laboratory performed the technical component only. 8 11:48 AM CDT DERMATOPATHOLOGY LABORATORY Embedded Images 11:48 AM CDT DERMATOPATHOLOGY LABORATORY DISCLAIMER An external and internal positive and negative controls are appropriate for the histochemical, immunohistochemical and immunofluorescence stain(s) in this case (if any), except where stated explicitly. The performance characteristics of the stain(s) cited in this report were developed and its performance characteristic determined by the Dermatopathology Laboratory at [facility]. These tests need not be, and therefore are not, approved by the [place] Food and Drug Administration. The tests are used for clinical purposes. 8 11:48 AM CDT DERMATOPATHOLOGY LABORATORY Pathology/Cytolog y TISSUE SPECIMEN FROM SKIN / Unknown 06/26/2018 06/30/2018 7:12 AM CDT Merna Richey MD LAB - PATHOLOGY/CYT OLOGY ORDERABLES DERMATOPATHOLOGY LABORATORY [facility] - Department of Dermatology [address] [place] [address], 5th Floor Lab [address] [phone] documented in this encounter Visit Diagnoses Not on filedocumented in this encounter
--- OUTSIDE RECORDS SUMMARY | 2025-02-27 09:47 | XMS_ITS | Encounter Summary ---
Author Organization [facility] Address [address] [facility] [place] [address] Care Team Providers Care Air Conditioning Service Technician Name Role Phone Unavailable Primary Care Provider Unavailabl e Encounter Details Date Type Department Care Team (Late st Contact Info) Description 04/16/2023 Lab Requisition [facility] - DermPath Lab [address] [facility], [place] [address] Celine Gray MD [address] [facility] 3 [place] [address] Social History Tobacco Use Types Packs/Day Years Used Date Smoking Tobacco: Never Smokeless Tobacco: Never Sex and Gender Information Value Date Recorded Sex Assigned at Not on file Gender Identity Not on file Sexual Orientation Not on file documented as of this encounter Plan of Treatment Not on file documented as of this encounter Procedures Procedure Name Priority Date/Time Associated Diagnosis Comments DERMATOPATHOLOGY Routine 04/16/2023 3:30 PM CDT documented in this encounter Results * DERMATOPATHOLOGY (04/16/2023 3:30 PM CDT) Case Report Dermatopathology Report Case: [id number] Authorizing Provider: Celine Gray MD Collected: 04/16/2023 03:30 PM Ordering Location: [facility] DermPath Lab Received: 04/18/2023 06:04 AM Pathologist: Danyelle Leija MD Specimen: Skin, right upper lip 5:53 PM CDT DERMATOPATHOLOGY LABORATORY Final Diagnosis Specimen A. SKIN, right upper lip: BASAL CELL CARCINOMA, NODULAR TYPE (C44.319) (see microscopic description) 5:53 PM CDT DERMATOPATHOLOGY LABORATORY Clinical History Murillo papule r/o BCC 5:53 PM T DERMATOPATHOLOGY LABORATORY Gross Description Specimen A: Received is one formalin filled container labeled with the patient's name and designated right upper lip. The specimen consists of a shave biopsy measuring 3x2x1 mm. Jar 0. 5:53 PM T DERMATOPATHOLOGY LABORATORY Microscopic Description Specimen A. SKIN, right upper lip: Within the dermis there are aggregates of basaloid cells with a high nuclear to cytoplasmic ratio and peripheral palisading, best seen on slides A1-2, A1-3, and A1-4. Additional deeper sections were obtained and reviewed. 5:53 PM T DERMATOPATHOLOGY LABORATORY Disclaimer An external and internal positive and negative controls are appropriate for the histochemical, immunohistochemical and immunofluorescence stain(s) in this case (if any), except where stated explicitly. The performance characteristics of the stain(s) cited in this report were developed and its performance characteristic determined by the Dermatopathology Laboratory at [facility], directed by Dr. David Naranjo. These tests need not be, and therefore are not, approved by the [place] Food and Drug Administration. The tests are used for clinical purposes. Billing Codes Specimen Charges Stain Charges 53210 1 3 5:53 PM CDT DERMATOPATHOLOGY LABORATORY Embedded Images 5:53 PM CDT DERMATOPATHOLOGY LABORATORY Pathology/Cytolo gy TISSUE SPECIMEN FROM SKIN / Unknown 04/16/2023 3:30 PM CDT 04/18/2023 6:04 AM CDT Celine Gray MD LAB - PATHOLOGY/CYTO LOGY ORDERABLES DERMATOPATHOLOGY LABORATORY [facility] - Department of Dermatology [address], [address] [phone] documented in this encounter Visit Diagnoses Not on filedocumented in this encounter
--- OUTSIDE RECORDS SUMMARY | 2025-02-27 09:47 | XMS_ITS | Encounter Summary ---
Author Organization [facility] Address [address] [facility] [place] [address] Care Team Providers Care Pilot Name Role Phone Unavailable Primary Care Provider Unavailabl e Encounter Details Date Type Department Care Team (Late st Contact Info) Description 03/21/2020 Lab Requisition [facility] DermPath Lab [address] [facility], [place] [phone] Celine Gray MD [address] [facility] 3 [place] [address] Social History Tobacco Use Types Packs/Day Years [...] Associated Diagnosis Comments DERMATOPATH TECHNICAL REPORT Routine 03/21/2020 12:00 AM CDT documented in this encounter Results * DERMATOPATH TECHNICAL REPORT (03/21/2020 12:00 AM CDT) Amended Report Convert the case to global; see [id number]. 0 8:54 AM CDT DERMATOPATHOLOGY LABORATORY Case Report Dermatopathology Report Case: [id number] Authorizing Provider: Celine Gray MD Collected: 03/21/2020 12:00 AM Ordering Location: [facility] DermPath Lab Received: 03/21/2020 02:11 PM Pathologist: Danyelle Leija MD Specimen: Skin, left knee 0 8:54 AM CDT DERMATOPATHOLOGY LABORATORY Clinical History DF vs atypical mycobacterial vs deep fungal; non-healing, inflamed, painful. 0 8:54 AM CDT DERMATOPATHOLOGY LABORATORY Gross Description Specimen A: Received is one formalin filled container labeled with the patient's name and designated left knee. The specimen consists of a punch measuring [id number]. Jar 0. [facility] Dermatopathology Laboratory performed the technical component only. 0 8:54 AM CDT DERMATOPATHOLOGY LABORATORY Embedded Images 0 8:54 AM CDT DERMATOPATHOLOGY LABORATORY DISCLAIMER An external and internal positive and negative controls are appropriate for the histochemical, immunohistochemical and immunofluorescence stain(s) in this case (if any), except where stated explicitly. The performance characteristics of the stain(s) cited in this report were developed and its performance characteristic determined by the Dermatopathology Laboratory at [facility], directed by Dr. David Naranjo. These tests need not be, and therefore are not, approved by the [place] Food and Drug Administration. The tests are used for clinical purposes. 0 8:54 AM CDT DERMATOPATHOLOGY LABORATORY Amendment electronically signed by Danyelle Leija MD on 03/29/2020 at 8:54 AM Pathology/Cytolog y TISSUE SPECIMEN FROM SKIN / Unknown 03/21/2020 03/21/2020 2:11 PM CDT Celine Gray MD LAB - PATHOLOGY/CYTO LOGY ORDERABLES DERMATOPATHOLOGY LABORATORY [facility] - Department of Dermatology [address] [place] [address] 5th [place] [address], [facility] [phone] documented in this encounter Visit Diagnoses Not on filedocumented in this encounter
--- OUTSIDE RECORDS SUMMARY | 2025-02-27 09:47 | XMS_ITS | Referral Summary ---
Author Organization [facility] [place] [address] Address [address] [place] [address] Care Team Providers Care Loss Prevention Research Engineer Name Role Phone Obie Vick DO Primary Care Provider +1- [phone] Allergies Active Allergy Reactions Criticality Noted Date Comments Erythromycin Unknown 12/24/2023 Medications epinastine 0.05 % ophthalmic solution 1 drop 2 (two) times a day 3 Active fluticasone propionate (FLONASE) 50 mcg/actuation nasal spray Administer into affected nostril(s) Active Active Problems No known active problems Social History Tobacco Use Types Packs/Day Years Used Date Smoking Tobacco: Never Assessed Comments Unknown Sex and Gender Information Value Date Recorded Sex Assigned at Not on file Legal Sex Female 3:19 PM OUTSOLE LEVELER Gender Identity Not on file Sexual Orientation Not on file Last Filed Vital Signs Vital Sign [place] Time Taken Comments Blood Pressure 110/72 12/24/2023 2:06 PM OUTSOLE LEVELER Pulse 71 12/24/2023 2:06 PM OUTSOLE LEVELER Temperature 36.5 C (97.7 F) 12/24/2023 2:06 PM OUTSOLE LEVELER Respiratory Rate 14 12/24/2023 2:06 PM OUTSOLE LEVELER Oxygen Saturation 96% 12/24/2023 2:06 PM OUTSOLE LEVELER Inhaled Oxygen Concentration - - Weight 61.4 kg (135 lb 6.4 oz) 12/24/2023 2:06 P M OUTSOLE LEVELER Height 172.7 cm (5' 8 ) 12/24/2023 2:06 PM OUTSOLE LEVELER Body Mass Index 20.59 12/24/2023 2:06 PM OUTSOLE LEVELER Plan of Treatment Not on file Insurance [employer] Care Teams Loss Prevention Research Engineer Relationship Specialty Start Date End Date Obie Vick DO PCP - General Internal Medicine 11/25/16
--- OUTSIDE RECORDS SUMMARY | 2025-02-27 09:47 | XMS_ITS | Clinical Summary ---
Author Organization [facility] [address] Address [address] [place] [address] Care Team Providers Care Day Care Supervisor Name Role Phone Obie Vick DO Primary Care Provider +1- [phone] Allergies Active Allergy Reactions Criticality Noted Date [...] on file Legal Sex Female 3:19 PM SUPERVISOR VARNISH Gender Identity Not on file Sexual Orientation Not on file Obstetrics History Last Filed Vital Signs Vital Sign [place] Time Taken Comments Blood Pressure 110/72 12/24/2023 2:06 PM SUPERVISOR VARNISH Pulse 71 12/24/2023 2:06 PM SUPERVISOR VARNISH Temperature 36.5 C (97.7 F) 12/24/2023 2:06 PM SUPERVISOR VARNISH Respiratory Rate 14 12/24/2023 2:06 PM SUPERVISOR VARNISH Oxygen Saturation 96% 12/24/2023 2:06 PM SUPERVISOR VARNISH Inhaled Oxygen Concentration - - Weight 61.4 kg (135 lb 6.4 oz) 12/24/2023 2:06 P M SUPERVISOR VARNISH Height 172.7 cm (5' 8 ) 12/24/2023 2:06 PM SUPERVISOR VARNISH Body Mass Index 20.59 12/24/2023 2:06 PM SUPERVISOR VARNISH Plan of Treatment Health Maintenance Due Date Last Done Comments Breast Cancer Screening-Mammogram 1965 Cervical Cancer Screening 1965 Colon Cancer Screening-Colonoscopy 1965 Depression Screening 1965 Hepatitis C Screening 1965 DTaP/Tdap/Td Vaccine (1 - Tdap) 1976 Hepatitis B Screening 1983 Regular Well Visit/Exam 18-64 1983 Zoster Vaccine (1 of 2) 2015 Influenza Vaccine (#1) 2024 Pneumococcal vaccine <65 Aged Out No longer eligible based on patient's age to complete this topic Insurance [employer] Care Teams Day Care Supervisor Relationship Specialty Start Date End Date Obie Vcik DO PCP - General Internal Medicine 11/25/16
--- OUTSIDE RECORDS SUMMARY | 2025-02-27 09:47 | XMS_ITS | Encounter Summary ---
Author Organization [facility] Address [address] [place] [address] Care Team Providers Care Political Geographer Name Role Phone Unavailable Primary Care Provider Unavailabl e Encounter Details Date Type Department Care Team (Late st Contact Info) Description 03/23/2020 Lab Requisition [facility] DermPath Lab [address] [facility], [place] [phone] Celine Gray MD [address] [facility] 3 [place] [address] Social History Tobacco Use Types Packs/Day Years [...] Priority Date/Time Associated Diagnosis Comments DERMATOPATHOLOGY Routine 03/21/2020 12:0 0 AM CDT documented in this encounter Results * DERMATOPATHOLOGY (03/21/2020 12:00 AM CDT) Case Report Dermatopathology Report Case: [id number] Authorizing Provider: Celine Gray MD Collected: 03/21/2020 12:00 AM Ordering Location: [facility] Care DermPath Lab Received: 03/23/2020 02:15 PM Pathologist: Juan M Naranjo MD Specimen: Skin, left knee 0 4:35 PM CDT DERMATOPATHOLOGY LABORATORY Final Diagnosis Specimen A. 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 0 4:[address] [facility] DERMATOPATHOLOGY LABORATORY Gross Description Specimen A: Received is one formalin filled container labeled with the patient's name and designated left knee. The specimen consists of a punch biopsy measuring 3x3x6 mm. Jar 0. 0 4:[address] [facility] DERMATOPATHOLOGY LABORATORY Microscopic Description Specimen A. SKIN, left knee: In the superficial dermis, there are fibroblasts and collagen bundles oriented parallel to the skin surface with elongated blood vessels, some of which are oriented perpendicular to the skin surface. In the mid to deep dermis, there are several nodular collections of histiocytes and multinucleate giant cells around fragments of fiber-like foreign material consistent with suture. The foreign material is refractile when viewed under polarized light. Beneath a Grenz zone and involving most of the dermis and superficial subcutis, there is a focally nodular infiltrate composed of small lymphocytoid cells with scattered admixed mononuclear phagocytes and numerous eosinophils. An immunostain for CD3 demonstrates that most of the lymphoid cells are T-lymphocytes, while CD20 highlights scattered B-lymphocytes distributed individually and in small clusters. CD68 highlights scattered admixed histiocytes. Mib-1 shows a proliferative index of approximately 20-30% amongst the inflammatory infiltrate. Grocott's methenamine silver (GMS) and Danisha stains fail to highlight fungal elements or Mycobacterial organisms, respectively, in the available sections. COMMENT: The patient's prior biopsy specimen ([id number]) is reviewed. The histologic findings in the current specimen show changes related to the prior procedure, including scar and retained suture material with surrounding foreign body granulomas. 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 This phenomenon is well-described in the setting of certain types of trauma, including tattoo placement and vaccine administration. Other reported traumatic events have been associated with CLH (see references), although a brief literature search does not reveal reports of CLH specifically associated with suture granuloma. If this lesion persists or there is clinical suspicion for a more worrisome process, consideration may be given to repeat biopsy. If there is continued concern for an infectious process consideration should be given to submitting tissue for culture. Ongoing clinical follow-up is recommended. References: Phuong PJ, et al. Cutaneous reaction from a broken thermometer. Am Acad Dermatol. 1991 Sep;25(5 Pt 2):915-9. Ayesha CORREIA, et al. 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 [place] Med J. 2013 March;54(5):e100-1. 0 4:35 PM CDT DERMATOPATHOLOGY LABORATORY Disclaimer An external and internal positive and negative controls are appropriate for the histochemical, immunohistochemical and immunofluorescence stain(s) in this case (if any), except where stated explicitly. The performance characteristics of the stain(s) cited in this report were developed and its performance characteristic determined by the Dermatopathology Laboratory at [facility], directed by Dr. David Naranjo. These tests need not be, and therefore are not, approved by the [place] Food and Drug Administration. The tests are used for clinical purposes. Billing Codes Specimen Charges Stain Charges 80544 1 [id number] 53985 28653 08526 58642 1 1 1 1 1 1 0 4:35 PM CDT DERMATOPATHOLOGY LABORATORY Embedded Images 0 4:35 PM CDT DERMATOPATHOLOGY LABORATORY Pathology/Cytolog y TISSUE SPECIMEN FROM SKIN / Unknown 03/21/2020 03/23/2020 2:15 PM CDT Celine Gray MD LAB - PATHOLOGY/CYTO LOGY ORDERABLES DERMATOPATHOLOGY LABORATORY [facility] - Department of Dermatology [facility] [facility] 5th Floor Lab B [place], [place] [id number] [place] [address] documented in this encounter Visit Diagnoses Not on filedocumented in this encounter
--- OUTSIDE RECORDS SUMMARY | 2025-02-27 09:47 | XMS_ITS | Clinical Summary ---
Author Organization [facility] Address [address] [facility] [place] [address] Care Team Providers Care Grievance And Appeals Specialist Name Role Phone Unavailable Primary Care Provider Unavailabl e Source Comments [facility],non-owned Affiliates and Associated Physician Practices is amultiple site organization consisting of ambulatory clinics and hospital sitesin [place], [place], [place] and [place]. This disclosure is being madepursuant to the Care Everywhere program and may not contain all information available regarding this patient. Last updated 18.[facility] Allergies No known active allergies Medications * Be aware that medications may not be up to date on this document. Alwaysverify current medications with the patient. Medication Sig Dispensed Refills Start Date End Date Status Fluticasone Propionate (FLONASE NA) Active Social History Tobacco Use Types Packs/Day Years Used Date Smoking Tobacco: Never Smokeless Tobacco: Never Sex and Gender Information Value Date Recorded Sex Assigned at Not on file Gender Identity Not on file Sexual Orientation Not on file Last Filed Vital Signs Vital Sign [place] Time Taken Comments Blood Pressure 138/88 07/22/2019 2:27 PM CDT Pulse 65 07/22/2019 2:27 PM CDT Temperature 37.2 C (99 F) 07/22/2019 2:27 PM CDT Respiratory Rate 16 07/22/2019 2:27 PM CDT Oxygen Saturation 97% 07/22/2019 2:27 PM CDT Inhaled Oxygen Concentration - - Weight 72.8 kg (160 lb 6.4 oz) 07/22/2019 2:27 P M CDT Height 175.3 cm (5' 9 ) 07/22/2019 2:27 PM CDT Body Mass Index 23.69 07/22/2019 2:27 PM CDT Plan of Treatment Health Maintenance Due Date Last Done Comments COLOGUARD (AGES 45-75) - COL ON CA SCREENING 1965 COLON MONITORING 1965 COLONOSCOPY - COLON CA SCREENING 1965 CT COLONOGRAPHY - COLON CA SCREENING 1965 Colorectal Cancer Screening 1965 FIT - COLON CA SCREENING 1965 FLEX SIG - COLON CA SCREENING 1965 LIPID TESTING 1965 MAMMOGRAM 1965 PAP SMEAR 1965 HIV SCREENING 1980 HEPATITIS C SCREENING 03/29/1983 DTAP/TDAP/TD VACCINES (1 - Tdap) 1984 HEPATITIS B VACCINE (1 of 3 - 19+ 3-dose series) 1984 PNEUMOCOCCAL VACCINE 50+ (1 of 1 - PCV) 2015 ZOSTER VACCINE (1 of 2) 2015 COVID-19 VACCINE ( - 2023-2 5 season) 2024 INFLUENZA VACCINE (#1) 2024 DEPRESSION SCREENING 11/25/2024 HIB VACCINE Aged Out No longer eligi ble based on patient's age to complete this topic HPV VACCINE Aged Out No longer eligi ble based on patient's age to complete this topic MENINGOCOCCAL (Group B) VACC INE SHARED DECISION-MAKING Aged Out No longer eligibl e based on patient's age to complete this topic MENINGOCOCCAL GROUPS A/C/Y/W VACCINE Aged Out No longer eligible b ased on patient's age to complete this topic PNEUMOCOCCAL VACCINE Aged Out No long er eligible based on patient's age to complete this topic
--- OUTSIDE RECORDS SUMMARY | 2025-02-27 09:47 | XMS_ITS | Encounter Summary ---
Author Organization [facility] Address [address] [facility] [place] [address] Care Team Providers Care Industrial Electrician Journeyman Name Role Phone Unavailable Primary Care Provider Unavailabl e Encounter Details Date Type Department Care Team (Late st Contact Info) Description 11/05/2019 Lab Requisition [facility] Care DermPath Lab [address] [facility], [place] [phone] Jewell Roman DO [address] [facility] 3 [place] [address] Social History Tobacco Use Types Packs/Day Years [...] Priority Date/Time Associated Diagnosis Comments DERMATOPATHOLOGY Routine 11/05/2019 12:0 0 AM LINE REPAIRER documented in this encounter Results * DERMATOPATHOLOGY (11/05/2019 12:00 AM LINE REPAIRER) Case Report Dermatopathology Report Case: [id number] Authorizing Provider: Jewell Roman DO Collected: 11/05/2019 12:00 AM Ordering Location: [facility] Care DermPath Lab Received: 11/05/2019 10:27 AM Pathologist: Juan M Naranjo MD Specimen: Skin, left knee 9 2:53 PM LINE REPAIRER DERMATOPATHOLOGY LABORATORY Final Diagnosis Specimen A. SKIN, left knee: DERMATOFIBROMA (D23.9) NOT PRESENT AT MARGIN DERMAL SCAR (L90.5) 9 2:53 PM LINE REPAIRER DERMATOPATHOLOGY LABORATORY Clinical History R/O DF recurrent. 2:53 PM [facility] DERMATOPATHOLOGY LABORATORY Gross Description Specimen A: Received is one formalin filled container labeled with the patient's name and designated left knee. The specimen consists of a non-oriented ellipse of skin measuring [id number]. The epidermal surface consists of a centrally located 5x5mm previous biopsy site. The margin is inked green. The 12 o'clock and 6 o'clock tips are submitted in cassette 1. The remainder of the ellipse is serially sectioned and submitted in cassettes 2-3. Jar 0. 2:53 PM [facility] DERMATOPATHOLOGY LABORATORY Microscopic Description Specimen A. SKIN, left knee: There is epidermal hyperplasia. Within the dermis, there are fibrohistiocytic cells in haphazard array among coarse collagen bundles. This lesion is not present at the margin of the specimen. There are fibroblasts and collagen bundles oriented parallel to the skin surface with elongated blood vessels, some of which are oriented perpendicular to the skin surface. 2:53 PM [facility] DERMATOPATHOLOGY LABORATORY Disclaimer An external and internal positive and negative controls are appropriate for the histochemical, immunohistochemical and immunofluorescence stain(s) in this case (if any), except where stated explicitly. The performance characteristics of the stain(s) cited in this report were developed and its performance characteristic determined by the Dermatopathology Laboratory at [facility], directed by Dr. David Naranjo. These tests need not be, and therefore are not, approved by the [place] Food and Drug Administration. The tests are used for clinical purposes. Billing Codes Specimen Charges Stain Charges 04857 1 9 2:53 PM [facility] DERMATOPATHOLOGY LABORATORY Embedded Images 2:53 PM [facility] DERMATOPATHOLOGY LABORATORY Pathology/Cytolog y TISSUE SPECIMEN FROM SKIN / Unknown 11/05/2019 11/05/2019 10:27 AM [facility] Jewell Roman DO LAB - PATHOLOGY/C YTOLOGY ORDERABLES DERMATOPATHOLOGY LABORATORY [facility] - Department of Dermatology [address] [place] [address], 5th Floor Lab B [address] [phone] documented in this encounter Visit Diagnoses Not on filedocumented in this encounter
== END 2025-02-27 09:45 | disposition home or self-care (01) ==
PROVIDERS: PCP Internal Medicine; Visit Provider Obstetrics & Gynecology
DX: Z12.31 Encounter for screening mammogram for malignant neoplasm of breast (principal); Z78.0 Asymptomatic menopausal state
CPT/HCPCS: 77063; 77067; 77080

== ENCOUNTER 2025-03-12 12:45 | Emergency (ER) | payer BC, SELFPAY ==
--- NOTE | 2025-03-12 12:47 | ED.URI ---
HPI - URI/Sore Throat General Chief Complaint: Upper Respiratory Infection Stated Complaint: Sinus Infection Symptoms Time Seen by Provider: 03/12/25 12:48 Source: patient Mode of arrival: ambulatory Limitations: no limitations History of Present Illness HPI Narrative: Brooklynn is a 59-year-old female patient presenting to the clinic today with complaints of possible sinus infection. She reports she has had symptoms for over 1 week. States that she is having right-sided facial heaviness, pressure, and headache. Is coughing up some green phlegm. States that the headache started over 1 week ago the back of her head and radiates to the front. Denies any visual changes but has had some crusting and drainage coming from the right eye. She denies any fevers, chills, or body aches. No history of migraine headaches. Related Data Home Medications ?Medication ?Instructions ?Recorded ?Confirmed ?Last Taken ?Type ascorbic acid (vitamin C) 1,000 mg 1 g PO DAILY 02/22/21 11/27/24 Unknown History tablet azelastine 0.05 % eye drops 1 drp EACH EYE BID 10/29/23 11/27/24 Unknown History epinastine 0.05 % eye drops 1 drp EACH EYE BID 10/29/23 11/27/24 Unknown History triamcinolone acetonide 55 mcg 1 spray intranasal DAILY 10/29/23 11/27/24 11/23/24 History nasal spray aerosol (Nasacort) Allergies Allergy/AdvReac Type Severity Reaction Status Date / Time shellfish derived Allergy Intermediate edema Verified 03/12/25 12:53 cat dander Allergy Unknown Verified 03/12/25 12:53 Review of Systems Review of Systems: Pertinent positives per HPI. Patient denies any fever, chills, rash, visual changes, dizziness, cough, shortness of breath, chest pain, palpitations, nausea, vomiting, diarrhea, constipation, abdominal pain, or any urinary issues. [facility] Past Medical History Medical History Headache Hospital discharge follow-up Gait disturbance Dizziness Elevated blood pressure reading Iliotibial band syndrome, left leg Claustrophobia Urinary frequency Chronic pain of left knee Cervical radiculopathy, chronic Acute appendicitis with localized peritonitis, without perforation or abscess Medial meniscus tear Left leg pain Vaginal symptom Abdominal pain Height loss Rib pain on left side Otitis media Chronic sinusitis Chronic rhinitis Frequent UTI Ear fullness Nasal vestibulitis Acute bronchiolitis Asthma attack Environmental allergies Insomnia Hypertension Asthma Surgical History Surgical History S/P endometrial ablation History of appendectomy Family History Family History Other Adopted Social History Social History Social History: Caffeine-1 cup daily Smoking status: Former smoker Alcohol intake: former Alcohol use details: 6 weekly Substance use type: does not use Living arrangements: with family Occupation/Education: occupation 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 There is no relevant family history pertinent to the patient complaint. Exam Narrative: General: Well-developed, well nourished, in no apparent distress Head: Normocephalic, atraumatic Eyes: Pupils equally round and reactive to light bilaterally, EOM intact, sclera and conjunctive clear, no discharge, lids normal Ears: TMs intact and clear, ear canals clear, no drainage, grossly hearing normal. Nose: Nares patent, clear nasal discharge, moderate inflammation, right maxillary, ethmoid, and frontal sinus tenderness. Mouth: Oropharynx without lesions or masses, good dentition, MMM. Tongue midline, even rise and fall of uvula, postnasal drip Neck: Supple, trachea midline, no enlargement of anterior or posterior cervical nodes, no thyroid masses or goiter palpable. Cardio: Regular rate and rhythm, s1 and s2 normal, no murmur appreciated. Resp: Clear to auscultation bilaterally anteriorly and posteriorly, no rhonchi, rales, wheezing or rubs Musculoskeletal: No deformity, non-tender to palpation, grossly normal range of motion, muscle strength strong and equal, peripheral pulse strong, no edema, no cyanosis, normal gait and station Neuro: Alert and oriented x4 with normal speech, no focal deficits, cranial nerves I through XII intact, muscle strength 5 out of 5, sensation intact bilaterally, negative Romberg test Course Course Emergency Course: Portions of this record may have been created with voice recognition software. Level of Care: Express Care Visit Vital Signs Vital signs: Vital Signs Temperature 36.9 C 03/12/25 12:54 Pulse Rate 76 03/12/25 12:54 Respiratory Rate 18 03/12/25 12:54 Blood Pressure 142/93 H 03/12/25 12:54 Pulse Oximetry 100 03/12/25 12:54 Oxygen Delivery Room Air 03/12/25 12:54 Temperature 36.9 C 03/12/25 12:54 Pulse Rate 76 03/12/25 12:54 Respiratory Rate 18 03/12/25 12:54 Blood Pressure 142/93 H 03/12/25 12:54 Pulse Oximetry 100 03/12/25 12:54 Oxygen Delivery Room Air 03/12/25 12:54 Vital signs reviewed MDM - URI/Sore Throat MDM Narrative Medical decision making narrative: At the time of visit patient is resting comfortably on the exam table. Patient appears to be nontoxic. Plan: Patient reporting headache starting from the and neck and radiating to the front which is likely a tension headache. No history of migraine headaches in the past. Reporting some right-sided facial pain/heaviness. Offer to send patient to the emergency room for further evaluation of headache/facial heaviness and she declined at this time. She would like to try medications for a sinus infection to see if this helps alleviate her symptoms and if her symptoms worsen she will go to the emergency room. Supportive measures were discussed with the patient and they voiced understanding discharge instructions and agrees to treatment plan. Strict return precautions reviewed Differential Diagnosis Differential diagnosis: Likely upper respiratory infection, otitis media, sinusitis, viral infection, bronchitis, influenza, pharyngitis and other (COVID) Discharge Plan Discharge Clinical Impression: Sinusitis Qualifiers: Sinusitis location: maxillary Chronicity: acute Recurrence: non-recurrent Qualified Code(s): J01.00 - Acute maxillary sinusitis, unspecified Acute headache Qualifiers: Headache type: unspecified Intractability: not intractable Qualified Code(s): R51.9 - Headache, unspecified Patient Disposition: Home Condition: Stable Instructions: Antibiotic Form, Sinusitis (ED), Acute Headache (ED) Additional Instructions: Take prescription medications only as prescribed-Augmentin and prednisone Increase fluids and stay well hydrated Tylenol/motrin for pain/fever Flonase and OTC antihistamines as directed Vicks vapor rub to open sinuses Sinus rinses for congestion Cepacol spray, cough drops, throat lozenges, warm tea with honey/lemon, gargle salt water to soothe throat BRAT diet for diarrhea Clear liquids x 24 hours then advance as tolerated for nausea/vomiting Go to the ED if you develop a worsening in your condition- high fever not controlled by Tylenol or Motrin, worsening headache, dehydration, weakness, lethargy, confusion, slurred speech, drooling, shortness of breath, or chest pain. Follow up with your PCP in 3-5 days if symptoms persist. Patient Language: Syrian Prescriptions: New prednisone 20 mg tablet 40 mg PO DAILY 5 Days Qty: 10 0RF amoxicillin-pot clavulanate 875-125 mg tablet 1 tablet PO Q12H 10 Days Qty: 20 0RF No Action doxycycline hyclate 100 mg capsule 100 mg PO BID 7 Days Qty: 14 0RF ascorbic acid (vitamin C) 1,000 mg tablet 1 g PO DAILY triamcinolone acetonide [Nasacort] 55 mcg aerosol,spray 1 spray intranasal DAILY Rx Instructions: administer into each nostril epinastine 0.05 % drops 1 drp EACH EYE BID azelastine 0.05 % drops 1 drp EACH EYE BID varenicline tartrate [Chantix Continuing Month Box] 1 mg tablet 1 mg PO BID Qty: 56 0RF Rx Instructions: NEEDS APPOINTMENT FOR FURTHER REFILLS Follow-up/Referrals: PHYSICIAN,CREATIVE DEVELOPER [Primary Care Provider] - Time of Disposition: 13:03 Quality NIHSS Nursing Documentation ED NIHSS nursing documentation: reviewed/agree
[2025-03-12 12:54] VITALS: BP 142/93; PULSE 76; RESP 18; TEMP 36.9; O2SAT 100
== END 2025-03-12 13:10 | disposition home or self-care (01) ==
PROVIDERS: Emergency Provider Nurse Practitioner Family
DX: J01.00 Acute maxillary sinusitis, unspecified (principal); R51.9 Headache, unspecified; Z87.891 Personal history of nicotine dependence; I10 Essential (primary) hypertension; J45.909 Unspecified asthma, uncomplicated
CPT/HCPCS: 99213; G0463